=== PATIENT | female | born 1960 ===

== ENCOUNTER 2019-07-04 17:18 | Emergency (ER) | payer OTHER ==
[2019-07-04] MEDS: ONDANSETRON (ODT) 4 MG TAB ODT (18:21)
[2019-07-04] MEDS: KETOROLAC 15 MG INJ IM (18:21)
== END 2019-07-04 19:25 | disposition home or self-care (01) ==
LOC: FTE 17:18
DX: R51 Headache (principal); R11.0 Nausea
CPT/HCPCS: 81025; 96372; 99284-25